=== PATIENT | male | born 1965 | race Caucasian/White ===

== ENCOUNTER 2016-12-04 10:38 | Emergency (ER) | payer OTHER, BC ==
[~2016-12-04] VITALS: Ht 175.3 cm; Wt 75.0 kg
[2016-12-04 10:47] VITALS: BP 158/87; PULSE 81; RESP 16; TEMP 98; O2SAT 97
[2016-12-04] MEDS ORDERED: IBUP-232 PO (11:21)
--- NOTE | 2016-12-04 11:21 | PD ---
HPI Chief Complaint: Injury Time Seen by Provider: 10:59 Travel History International Travel<30 days: No Contact w/Intl Traveler<30days: No Traveled to known affect area: No History of Present Illness HPI 50-year-old male complains of left fourth finger pain. Patient injured it pulling on an object this morning. Patient was seen by his chiropractor this morning and had x-ray done of the left hand which showed dislocation of PIP joint. Patient was referred to the emergency room for evaluation. Patient denies any other injury. PFSH Past Medical History COPD: Yes Diminished Hearing: No Respiratory: Yes (COPD) Tetanus Vaccination: Unknown Past Surgical History Appendectomy: Yes Social History Alcohol Use: No Tobacco Use: No (QUIT 1997) Substance Use: No Allergies-Medications (Allergen,Severity, Reaction): Coded Allergies: sulfamethoxazole (Unverified Allergy, Mild, 12/04/16) trimethoprim (Unverified Allergy, Mild, 12/04/16) Reported Meds & Prescriptions Reported Meds & Active Scripts Active No Active Prescriptions or Reported Medications Review of Systems General / Constitutional: No: Fever Eyes: No: Visual changes HENT: No: Headaches Cardiovascular: No: Chest Pain or Discomfort Respiratory: No: Shortness of Breath Gastrointestinal: No: Abdominal Pain Genitourinary: No: Dysuria Musculoskeletal: Positive: Pain Skin: No Rash Neurologic: No: Weakness Psychiatric: No: Depression Endocrine: No: Polydipsia Hematologic/Lymphatic: No: Easy Bruising Physical Exam Narrative GENERAL: Well-nourished, well-developed patient. SKIN: Focused skin assessment warm/dry. HEAD: Normocephalic. EYES: No scleral icterus. No injection or drainage. NECK: Supple, trachea midline. No JVD or lymphadenopathy. CARDIOVASCULAR: Regular rate and rhythm without murmurs, gallops, or rubs. RESPIRATORY: Breath sounds equal bilaterally. No accessory muscle use. GASTROINTESTINAL: Abdomen soft, non-tender, nondistended. MUSCULOSKELETAL: No cyanosis, or edema. BACK: Nontender without obvious deformity. No CVA tenderness. Examination of the left hand abuse deformity left fourth finger at PIP joint. Sensory function distally intact. Good capillary refill. Data Data Last Documented VS Vital Signs Date Time Temp Pulse Resp B/P (MAP) Pulse Ox O2 Delivery O2 Flow Rate FiO2 12/04/16 10:47 98.0 81 16 158/87 (110) 97 Orders Orders Finger ([id number]) (12/04/16 11:12) MDM Medical Decision Making Medical Screen Exam Complete: Yes Emergency Medical Condition: Yes Differential Diagnosis Differential diagnosis including dislocation, fracture. Narrative Course 50-year-old male with dislocation left fourth finger PIP joint. Procedures Procedure Narrative 1% lidocaine digital block. Traction countertraction technique applied to the left fourth finger. Reduction obtained. Post reduction x-ray obtained. Diagnosis Primary Impression: Dislocation closed, finger Qualified Codes: S63.259A - Unspecified dislocation of unspecified finger, initial encounter Patient Instructions: General Instructions Additional Instructions: Finger splint for 3 weeks. Follow-up with hand surgeon. Motrin as needed for pain. Med/Other Pt SpecificInfo: Prescription(s) given Scripts Ibuprofen (Ibuprofen) 600 Mg Tab 600 MG PO TID for Pain, #30 TAB 0 Refills Prov: Blair Thomas MD 12/04/16 Disposition: 01 DISCHARGE HOME Condition: Stable Blair Thomas MD Dec 04, 2016 11:21
--- NOTE | 2016-12-04 11:51 | RADRPT ---
EXAM DATE/TIME: 12/04/2016 11:17 [facility] COMPARISON: No previous studies available for comparison. INDICATIONS : Post reduction of left hand 4th digit. MEDICAL HISTORY : Chronic obstructive pulmonary disease. SURGICAL HISTORY : Appendectomy. ENCOUNTER: Initial ACUITY: 1 day PAIN SCORE: 2/10 LOCATION: Left hand 4th digit. FINDINGS: Bones of the left ring finger are intact and normally aligned. There is soft tissue swelling centered around the proximal interphalangeal joint. CONCLUSION: No fracture or subluxation of the left ring finger. Nehemias Dan MD on December 04, 2016 at 11:49 Board Certified Radiologist. This report was verified electronically.
== END 2016-12-04 12:19 | disposition home or self-care (01) ==
LOC: PHED 10:38
DX: S63.285A Dislocation of proximal interphalangeal joint of left ring finger, initial encounter (principal); J44.9 Chronic obstructive pulmonary disease, unspecified; X50.0XXA Overexertion from strenuous movement or load, initial encounter; Y99.0 Civilian activity done for income or pay
CPT/HCPCS: 26770; 64450; 73140